=== PATIENT | male | born 1985 | race Caucasian/White ===

== ENCOUNTER 2016-09-08 11:33 | Emergency (ER) | payer SELFPAY ==
[2016-09-08 12:45] VITALS: BP 139/77
--- NOTE | 2016-09-08 14:48 | UC ---
Complaint Male HPI - HPI Summary HPI Summary: compalint of burning after urinating once that occurred last week felt like he couldn't express his urinate fully then yesterday the sme thing occurred 1x this morning it occurred again slight burning in pelvis area and burrned with urinating felt some chills thsi morning after urinating - denies fever denies pain in testicles, denies penile lesions and discharge denies blood inurine, foul smelling denies abdmonial pain, back pain, flank pain - History of Current Complaint Chief Complaint: UCGU Stated Complaint: URINARY COMPLAINT Time Seen by Provider: 09/08/16 14:34 Hx Obtained From: Patient - Allergies/Home Medications Allergies/Adverse Reactions: Allergies Allergy/AdvReac Type Severity Reaction Status Date / Time No Known Allergies Allergy Verified 09/08/16 12:45 PMH/Surg Hx/FS Hx/Imm Hx Previously Healthy: Yes - Surgical History Surgical History: None - Family History Known Family History: Negative: Cardiac Disease, Hypertension, Diabetes - Social History Occupation: Employed Full-time Lives: With Family Alcohol Use: Weekly Substance Use Type: None Smoking Status (MU): Former Smoker Review of Systems Constitutional: Chills Skin: Negative Eyes: Negative ENT: Negative Respiratory: Negative Cardiovascular: Negative Gastrointestinal: Negative Genitourinary: Dysuria, Frequency, Urgency Motor: Negative Neurovascular: Negative Musculoskeletal: Negative Neurological: Negative Psychological: Negative All Other Systems Reviewed And Are Negative: Yes Physical Exam Triage Information Reviewed: Yes Appearance: No Pain Distress, Well-Nourished Vital Signs: Initial Vital Signs Temp 98.9 F 09/08/16 12:42 Pulse 62 09/08/16 12:42 Resp 16 09/08/16 12:42 BP 139/77 09/08/16 12:42 Pulse Ox 100 09/08/16 12:42 Vital Signs Reviewed: Yes Eyes: Positive: Conjunctiva Clear ENT: Positive: Pharynx normal, TMs normal Neck: Positive: No Lymphadenopathy Respiratory: Positive: Lungs clear, Normal breath sounds, No respiratory distress Cardiovascular: Positive: RRR, No Murmur, Pulses Normal Abdomen Description: Positive: Nontender, Soft Bowel Sounds: Positive: Present Musculoskeletal: Positive: No Edema Neurological: Positive: Alert Psychological Exam: Normal Skin Exam: Other - refused CU, rectal examination Complaint Male Course/Dx - Course Course Of Treatment: pt refuses ,rectal examination. will rx for doxycycline for treatment of possible ,mycoplasma UTI, prosttitis or STD. followup with Dr Lang if no improvement - Differential Dx/Diagnosis Differential Diagnosis/HQI/PQRI: Epididymitis, Prostatitis, Urinary Tract Infection Provider Diagnoses: UTI Discharge - Discharge Plan Condition: Stable Disposition: HOME Prescriptions: DOXYcycline CAP(*) [DOXYcycline 100MG CAP(*)] 100 mg PO BID #14 cap Patient Education Materials: Prostatitis (ED), Urinary Tract Infection in Men ( ED) Referrals: No Primary Care Phys,NOPCP [Primary Care Provider] - Javier Neil MD [Medical Doctor] - Additional Instructions: Please start antibiotic as directed Increase fluids and rest Take acetaminophen or ibuprofen for fever or pain Please review your discharge instructions. If your symptoms do not improve please call your primary care provider or return to urgent care or call Dr Neil for further evaluation.
== END 2016-09-08 15:24 | disposition home or self-care (01) ==
LOC: UCCORT 11:33
DX: N39.0 Urinary tract infection, site not specified (principal); Z87.891 Personal history of nicotine dependence
CPT/HCPCS: 81003; 87086; 87491; 87591; 87798; 99202; G0463